=== PATIENT | female | born 1995 | race African-American/Black ===

== ENCOUNTER 2017-10-30 16:53 | Emergency (ER) | payer OTHER ==
[2017-10-30 19:05] VITALS: BP 141/77
--- NOTE | 2017-10-30 19:29 | RAD ---
INDICATION: Right ankle injury. TECHNIQUE: 3 views of the right ankle were obtained. FINDINGS: There is diffuse soft tissue swelling which is most prominent adjacent to the lateral malleolus. The bones are in normal alignment. No fracture is seen. Joint spaces appear maintained. IMPRESSION: SOFT TISSUE SWELLING, NO FRACTURE IS SEEN.
--- NOTE | 2017-10-30 19:31 | UC ---
Lower Extremity/Ankle HPI - HPI Summary HPI Summary: 22 y/o female presents to the urgent care c/o Here w/ RIGHT ankle injury from 2300 last night. Pt states she slipped and fell 1 step, felt RIGHT ANKLE twist and pop when she fell. Now painful/swollen all around ankle and unable to ambulate/put pressure on RIGHT ANKLE. Elevated and iced ankle w/ no pain relief. no meds taken. - History of Current Complaint Chief Complaint: UCLowerExtremity Stated Complaint: RT ANKLE INJURY Time Seen by Provider: 10/30/17 19:28 Hx Obtained From: Patient Hx Last Menstrual Period: 10/01/17 Onset/Duration: Sudden Onset, Lasting Days - 1 day, Still Present Severity Initially: Moderate Severity Currently: Moderate Pain Intensity: 4 Pain Scale Used: 0-10 Numeric Aggravating Factor(s): Standing, Ambulation Alleviating Factor(s): Rest, Elevation, Ice Able to Bear Weight: No - Risk Factors Gout Risk Factors: Negative DVT Risk Factors: Negative Septic Arthritis Risk Factor: Negative - Allergies/Home Medications Allergies/Adverse Reactions: Allergies Allergy/AdvReac Type Severity Reaction Status Date / Time MS Penicillins Allergy Anaphylatic Verified 10/30/17 19:00 Shock PMH/Surg Hx/FS Hx/Imm Hx Previously Healthy: Yes Respiratory History: Asthma - Surgical History Surgical History: None - Family History Known Family History: Positive: Diabetes - Social History Occupation: Student Lives: With Family Alcohol Use: Occasionally Substance Use Type: None Smoking Status (MU): Never Smoked Tobacco Review of Systems Constitutional: Negative Skin: Negative Eyes: Negative ENT: Negative Respiratory: Negative Cardiovascular: Negative Gastrointestinal: Negative Genitourinary: Negative Motor: Negative Neurovascular: Negative Musculoskeletal: Decreased ROM - RT ankle, Other: - RT ankle pain s/p twisting ankle going down step Neurological: Negative Psychological: Negative Is Patient Immunocompromised?: No All Other Systems Reviewed And Are Negative: Yes Physical Exam Vital Signs: Initial Vital Signs Temp 98.3 F 10/30/17 19:00 Pulse 120 10/30/17 19:00 Resp 16 10/30/17 19:00 BP 141/77 10/30/17 19:00 Pulse Ox 100 10/30/17 19:00 Lower Extremity Course/Dx - Differential Dx/Diagnosis Differential Diagnosis/HQI/PQRI: Contusion, Dislocation, Fracture (Closed), Sprain, Strain, Tendonitis Provider Diagnoses: 1- Acute RT ankle pain s/p injury. 2-RT ankle sprain. 3- Elevated BP w/o Hx of HTN Discharge - Discharge Plan Condition: Stable Disposition: HOME Prescriptions: Naproxen [Naproxen 500 mg] 500 mg PO Q8H PRN #30 tab PRN Reason: Pain Patient Education Materials: Ankle Sprain (ED), Low-Sodium Diet (ED) Forms: *School Release Referrals: [facility] [Outside] Cirilo Patterson MD [Medical Doctor] - 1 Week Additional Instructions: 1-Please take medications as directed to alleviate pain and swelling. 2-Please apply ice, keep your ankle immobilized with the splint. Avoid weight bearing using the crutches 3- Please f/u with Orthopedic DR Patterson or your PCP in 1 week is not improvement of symptoms for further evaluation and treatment. 4-Your BP is elevated today. please decrease salt in your diet, monitor BP and if it continues to be elevated please f/u with your PCP for further management
[2017-10-30] MEDS ORDERED: Ibuprofen TAB* 400 MG PO ONE (19:37)
== END 2017-10-30 20:09 | disposition home or self-care (01) ==
LOC: UCCORT 16:53
DX: S93.401A Sprain of unspecified ligament of right ankle, initial encounter (principal); W01.0XXA Fall on same level from slipping, tripping and stumbling without subsequent striking against object, initial encounter; Y93.9 Activity, unspecified; Y92.9 Unspecified place or not applicable; R03.0 Elevated blood-pressure reading, without diagnosis of hypertension; J45.909 Unspecified asthma, uncomplicated; Z88.0 Allergy status to penicillin
CPT/HCPCS: 99203; A9270-GY; G0463